=== PATIENT | female | born 1975 | race Two or more races ===

== ENCOUNTER 2018-08-26 06:34 | Day surgery (SDC) | payer OTHER ==
[2018-08-26] VITALS (10 sets, daily range): BP systolic 121–145; BP diastolic 49–88
[~2018-08-26] VITALS: Ht 162.6 cm; Wt 79.8 kg
[~2018-08-26 06:34] MED LIST: ACETAMINOPHEN-1 EAC1 ORAL; ZANAFLEX4 MG ORAL
[2018-08-26] MEDS ORDERED: LR 1000ml 1,000 ML IVLG SCH (07:00)
--- NOTE | 2018-08-26 07:34 | Anethesia Preoperative Eval ---
Anesthesia Pre-op PMH/ROS General Date of Evaluation: Aug 26, 2018 Time of Evaluation: 07:31 Anesthesiologist: Gege Mario CRNA ASA Score: ASA 2 Mallampati Score Class I : Soft palate, uvula, fauces, pillars visible Class II: Soft palate, uvula, fauces visible Class III: Soft palate, base of uvula visible Class IV: Only hard plate visible Mallampati Classification: Class I Surgeon: Martin Diagnosis: GERD Surgical Procedure: EGD diagnostic Anesthesia History: none Family History: no anesthesia problems Allergies: Coded Allergies: No Known Allergies (Unverified , 08/25/18) Medications: see eMAR Patient NPO?: Yes NPO Date: Aug 26, 2018 NPO Time: 00:00 Past Medical History Cardiovascular: Denies: HTN, CAD, AK, valve dz, arrhythmia, other Pulmonary: Denies: asthma, COPD, REDDY, other Gastrointestinal/Genitourinary: Reports: GERD; Denies: CRI, ESRD, other Neurologic/Psychiatric: Denies: dementia, CVA, depression/anxiety, TIA, other Endocrine: Denies: DM, hypothyroidism, steroids, other HEENT: Denies: cataract (L), cataract (R), glaucoma, CHICKALOON (L), CHICKALOON (R), other Hematology/Immune: Denies: anemia, DVT, bleeding disorder, other Musculoskeletal/Integumentary: Reports: other - Chronic back pain s/p A/P lumbar fusion; Denies: OA, RA, DJD, DDD, edema Other: obesity PMH Narrative: as above PSxH Narrative: Lap binh, open appy, Left oopherectomy, lumbar fusion A/P Anesthesia Pre-op Phys. Exam Physician Exam Last Vital Signs Date Time Temp Pulse Resp B/P (MAP) Pulse Ox O2 Delivery O2 Flow Rate FiO2 08/26/18 07:17 Room Air 08/26/18 07:10 97.8 68 18 137/88 100 Constitutional: NAD, other - Other Neurologic: CN 2-12 intact Cardiovascular: RRR Respiratory: CTA Gastrointestinal: S/NT/ND Airway Exam Mallampati Score: Class I Dentures: no upper, no lower Anesthesia Pre-op A/P Labs Urine Test Test 08/26/18 06:50 Urine HCG, Qualitative Negative (NEGATIVE) Risk Assessment & Plan Assessment: ASA 2, ok to proceed Plan: MAC Status Change Before Surgery: No Pre-Antibiotics Given Within 1 Hr of Incision: No Gege Mario CRNA Aug 26, 2018 07:34
--- NOTE | 2018-08-26 07:51 | Short Stay Surgery H&P ---
History of Present Illness History of Present Illness Chief Complaint Abdominal pains/GERDs/nausea HPI Audrey Henderson is a 43 year old female who was admitted on for GERD/abdominal pain Patient History Allergies: Coded Allergies: No Known Allergies (Unverified , 08/25/18) PAST MEDICAL HISTORY: (1) Hyperlipidemia (2) Hx of cholecystectomy (3) Hx of appendectomy Medication History Scheduled Tizanidine Hcl (Zanaflex*), 4 MG ORAL PRN, (Reported) Scheduled PRN Acetaminophen With Codeine (T#3) (Tylenol #3 Tab*), 1 TAB ORAL Q4H PRN for For Pain, (Reported) Review of Systems Cardiovascular: Reports: no symptoms Respiratory: Reports: no symptoms Skeletal: Reports: trauma Gastrointestinal: Reports: gastro esophageal reflux disease Genitourinary: Reports: no symptoms Neurologic: Reports: no symptoms Endocrine: Reports: no symptoms Hematologic: Reports: no symptoms Physical Exam Vital Signs Last Vital Signs Date Time Temp Pulse Resp B/P (MAP) Pulse Ox O2 Delivery O2 Flow Rate FiO2 08/26/18 07:17 Room Air 08/26/18 07:10 97.8 68 18 137/88 100 Labs Laboratory Tests Test 08/26/18 06:50 Urine HCG, Qualitative Negative (NEGATIVE) Skin: normal HENT: normal Heart: normal Lungs: normal Abdomen: abnormal Extremities: normal Genitourinary: normal Plan Plan of Care Upper GI.endoscopy Preop Interventions None. Summary of Findings See the reports Attestation Are the patient's medical conditions optimized for surgery? Attestation Response: yes Anirudh Headley MD Aug 26, 2018 07:51
--- NOTE | 2018-08-26 07:52 | Pre-Procedure Note/Attestation ---
Pre-Procedure Note/Attestation Complete Prior to Procedure Planned Procedure: left Procedure Narrative: Examination of the upper GI tract and biopsy Indications for Procedure Pre-Operative Diagnosis: R/O Gastritis/Peptic Ulcer Attestation I attest that I discussed the nature of the procedure; its benefits; risks and complications; and alternatives (and the risks and benefits of such alternatives ), prior to the procedure, with the patient (or the patient's legal textile machinery sales representative). I attest that, if there was a reasonable possibility of needing a blood transfusion, the patient (or the patient's legal textile machinery sales representative) was given the [facility] standardized written summary, pursuant to the Bird Sarai Blood Safety Act ([place] Health and Safety Code # 1645, as amended). I attest that I re-evaluated the patient just prior to the surgery and that there has been no change in the patient's H&P, except as documented below: Anirudh Headley MD Aug 26, 2018 07:52
--- NOTE | 2018-08-26 07:58 | Endoscopy Procedure Note ---
Endoscopy Procedure Note General Indication for Procedure: Abdominal pains, Nausea and GERDs Procedures Performed: EGD - Completely normal Upper GI endoscopy. Biopsy was taken per random from gastric body. Specimen: yes Pt Tolerated Procedure Well: Yes Estimated Blood Loss: none Anesthesia Anesthesiologist: Ms. Fabiano CRNA Anesthesia: moderate sedation Medications Medication Given: see anesthesia record Inserted Devices Implant(s) used?: No Quality Quality of Bowel Preparation: Excellent GI Core Measures 50 yrs or older w/o bx or poly: Not Applicable 10yrs. F/U not recommended: Not Applicable If not recommended, why?: Med reason:<3 yrs.: System Reason:<3 yrs.: Anirudh Headley MD Aug 26, 2018 07:57
--- NOTE | 2018-08-26 07:59 | Discharge Instructions ---
Discharge Instructions Discharge Instructions Follow up with: Visit the doctor after two weeks in the office For Congestive Heart Failure Reminder Report to your physician any weight gain of 5 pounds or more in one week. Anirudh Headley MD Aug 26, 2018 07:59
--- NOTE | 2018-08-26 08:12 | Immediate Post-Op Evaluation ---
Immediate Post-Op Evalulation Immediate Post-Op Evalulation Procedure: EGD Date of Evaluation: Aug 26, 2018 Time of Evaluation: 08:02 IV Fluids: LR 300 ml Blood Pressure Systolic: 145 Blood Pressure Diastolic: 49 Pulse Rate: 67 Respiratory Rate: 22 O2 Sat by Pulse Oximetry: 99 Temperature (Fahrenheit): 97.5 Pain Score (1-10): 0 Nausea: No Vomiting: No Complications none Patient Status: awake, reacts, patent Hydration Status: adequate Given Within 1 Hr of Incision: Gege Goode CRNA Aug 26, 2018 08:12
--- NOTE | 2018-08-26 09:17 | 48 Hour Post Anesthesia Eval ---
Post Anesthesia Evaluation Procedure: EGD Date of Evaluation: Aug 26, 2018 Time of Evaluation: 09:16 Blood Pressure Systolic: 128 0: 82 Pulse Rate: 62 Respiratory Rate: 22 Temperature (Fahrenheit): 97.5 O2 Sat by Pulse Oximetry: 100 Airway: patent Nausea: Yes Vomiting: Yes Pain Intensity: 0 Hydration Status: adequate Cardiopulmonary Status: stable Mental Status/LOC: patient returned to baseline Follow-up Care/Observations: per GI Post-Anesthesia Complications: none Follow-up care needed: ready to discharge Gege Mario CRNA Aug 26, 2018 09:17
--- NOTE | 2018-08-26 16:17 | Pre-op HX & Phy Repo 2 SIG ---
DATE OF ADMISSION: 08/26/2018 HISTORY OF PRESENT ILLNESS: The patient is a 43-year-old female who is being seen prior to undergoing the procedure for upper GI endoscopy for which she has been scheduled to receive for evaluation of gastrointestinal conditions and complains that she has suffered subsequent to her work injury. The patient basically is complaining of having pain over the upper part of the abdomen and epigastric area and occasionally she feels this pain over the lower part of the abdomen, which is not that significant. The pains are reported to be intermittent in nature and sometimes last few hours. She reports they are very severe. The patient also tells me that she has been experiencing these symptoms and pains for the past 3 to 4 years. Occasionally the pains are radiating towards her chest area. The patient has been treated with different medications including H2 blockers and PPIs. Occasionally, she experiences nausea symptoms as well. The patient also denies having any difficulty swallowing such as dysphagia or odynophagia. There has been no history of major gastrointestinal bleeding such as hematemesis, melena, etc. It is important to mention that the patient has been treated with nonsteroidal anti-inflammatory agents such as ibuprofen, Motrin, and similar compound subsequent to her work injury. However, at this time, she reports that she is not taking any of them. She denies having any change in bowel movements such as diarrhea or constipation. There has not been any history of gastrointestinal condition before being injured at job site as she was hired. She was working as a legal aide and gradually the during this process due to kind of work that she was doing she started to have injuries over different parts of the body, these were basically dorsolumbar area and disk disease that she finally had to undergo the procedure of diskectomy. PAST MEDICAL HISTORY: The patient has had history of hypercholesterolemia, otherwise no history of diabetes or hypertension noted. Also, she has had injury over right index finger. PAST SURGICAL HISTORY: The patient has had history of cholecystectomy and lower back fusion surgery along with appendectomy and cholecystectomy in the past. ALLERGIES: None significant. HABITS: She denies smoking cigarettes, but drinks only socially. MEDICATIONS: At this time, she is not taking any medication. REVIEW OF SYSTEMS: Basically history of present illness. PHYSICAL EXAMINATION: GENERAL: Reveals alert and well oriented female, does not seem to be in any acute distress. She looks well developed and nourished and answers the questions properly. VITAL SIGNS: All stable. HEENT: Normocephalic. Pupils equal in size, and reactive to light and accommodation. No visible jaundice. Buccal cavity, tongue midline, well hydrated. No ulcers. CHEST: Clear to auscultation and percussion. No rales or rhonchi. HEART: S1 and S2 normal. Regular rhythm. No gallops or murmur heard. ABDOMEN: Soft but there is mild tenderness over the upper part of the abdomen, but no masses. No hepatosplenomegaly. Bowel sounds are present. EXTREMITIES: Within normal limits. No pretibial edema, cyanosis, or clubbing. PREOPERATIVE IMPRESSION: 1. Abdominal pain, epigastric pain of uncertain etiology, rule out NSAID-induced gastritis, peptic ulcer disease, rule out gastroesophageal reflux with esophageal spasm. 2. Generalized abdominal pain, rule out underlying irritable bowel syndrome. 3. Hyperlipidemia. RECOMMENDATION: The applicant at this time seems to be stable to undergo the procedure for upper GI endoscopy. She understands the risks and benefits of the procedure and will sign the consent form. Said Irina Headley DR: Sima JOB#: [id number] CC:
--- NOTE | 2018-08-26 16:32 | Procedure Note ---
DATE OF PROCEDURE: 08/26/2018 SURGEON: Anirudh Headley M.D. PROCEDURE: Esophagogastroduodenoscopy with biopsy. PREOPERATIVE DIAGNOSES: 1. Abdominal pain. 2. History of gastroesophageal reflux. 3. Nausea. POSTOPERATIVE DIAGNOSIS: Completely normal upper GI endoscopy. Biopsy was taken per random from gastric body. MEDICATION USED: Per Ms. Fabiano CRNA. INSTRUMENT: GIF Olympus upper GI video endoscope. DESCRIPTION OF PROCEDURE: The patient after arriving at endoscopy unit, was told about risks and benefits of the procedure which she accepted and signed informed consent. She was then put on the left lateral decubitus position. After adequate IV sedation, the scope was gently passed through the cricopharyngeal area, was lodged into the upper esophagus and gradually advanced towards gastroesophageal junction. The entire length of the esophagus looked normal. No evidence of inflammatory process, ulceration, exudative process, bleeding, tumors or polyps was found. GE junction also looked normal without any evidence of hiatal hernia or Preston's. At this time, the scope was advanced into the stomach. Gastric cavity was distended with insufflation of air and gradually the areas of the fundus and the body and the antrum were examined which looked completely normal without any mucosal changes. There was no polyps, tumors, or ulcers etc. A retroflexion maneuver was also applied and the area of the gastroesophageal junction was examined in a closer fashion, which revealed to be completely normal. At this point, one random biopsy from gastric body obtained and subsequently the scope was advanced towards the antrum and guided into the pylorus. First and second portion of duodenum were found to be completely normal. Finally, scope was pulled out. The procedure was terminated. The patient tolerated the procedure well and left the endoscopy room in a good condition. Anirudh Headley M.D. DR: Sima JOB#: [id number] CC:
== END 2018-08-26 07:15 | disposition home or self-care (01) ==
LOC: GAS 06:34
DX: R10.84 Generalized abdominal pain (principal); K21.9 Gastro-esophageal reflux disease without esophagitis; R11.0 Nausea; E78.5 Hyperlipidemia, unspecified; E78.00 Pure hypercholesterolemia, unspecified; G89.29 Other chronic pain; M54.9 Dorsalgia, unspecified; Z90.49 Acquired absence of other specified parts of digestive tract
CPT/HCPCS: 81025; 94003; 94150